=== PATIENT | female | born 1985 | race Caucasian/White ===

== ENCOUNTER 2017-02-05 15:17 | Emergency (ER) | payer BC ==
[2017-02-05 16:50] VITALS: BP 117/73
--- NOTE | 2017-02-05 17:09 | UC ---
UC General HPI - HPI Summary HPI Summary: patient has had 1 day of bodyaches, sore throat and general malaise. 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 - History of Current Complaint Chief Complaint: UCGeneralIllness Stated Complaint: SORE THROAT/BODY ACHES Time Seen by Provider: 02/05/17 16:57 Hx Obtained From: Patient Onset/Duration: Sudden Onset, Lasting Days Timing: Constant Onset Severity: Moderate Current Severity: Moderate Associated Signs & Symptoms: Positive: Cough, Fever, Other - sore thraot, myalgia - Allergy/Home Medications Allergies/Adverse Reactions: Allergies Allergy/AdvReac Type Severity Reaction Status Date / Time [place] Allergy Intermediate LIPS SWELL Verified 02/05/17 16:50 Carrots Allergy Severe Swelling Uncoded 02/05/17 16:50 Of Face,Lips,& Throat Home Medications: Home Medications DULoxetine DR CAP* [Cymbalta CAP*] 60 mg PO ONCE 02/05/17 [History Confirmed 11/23] Hydroxychloroquine TAB* [Plaquenil TAB*] 200 mg PO BID 02/05/17 [History Confirmed 02/05/17] Topiramate [Topamax 100 mg tab] 100 mg PO DAILY 02/05/17 [History Confirmed 11/23] PMH/Surg Hx/FS Hx/Imm Hx Previously Healthy: Yes Endocrine History Of: Denies: Diabetes, Thyroid Disease Cardiovascular History Of: Denies: Cardiac Disorders, Hypertension, Pacemaker/ICD Respiratory History Of: Denies: COPD, Asthma GI/ History Of: Denies: Ulcer - Surgical History Surgical History: Yes Surgery Procedure, Year, and Place: [place] teeth extraction March 2005. LAP FOR ENDOMETRIOSIS - Family History Known Family History: Negative: Cardiac Disease, Hypertension - Social History Alcohol Use: Rare Substance Use Type: None Smoking Status (MU): Never Smoked Tobacco Review of Systems Constitutional: Fever, Chills, Fatigue Skin: Negative Eyes: Negative ENT: Sore Throat, Ear Ache, Nasal Discharge Respiratory: Cough Cardiovascular: Negative Gastrointestinal: Negative Genitourinary: Negative Motor: Negative Neurovascular: Negative Musculoskeletal: Myalgia Neurological: Headache Psychological: Negative All Other Systems Reviewed And Are Negative: Yes Physical Exam Triage Information Reviewed: Yes Appearance: Well-Nourished, Ill-Appearing, Pain Distress Vital Signs: Initial Vital Signs Temp 99.6 F 02/05/17 16:45 Pulse 93 02/05/17 16:45 Resp 16 02/05/17 16:45 BP 117/73 02/05/17 16:45 Pulse Ox 100 02/05/17 16:45 Vital Signs Reviewed: Yes Eye Exam: Normal Eyes: Positive: Conjunctiva Clear ENT: Positive: Pharyngeal erythema, Nasal congestion, Nasal drainage, TM bulging , Tonsillar swelling, Tonsillar exudate Dental Exam: Normal Neck exam: Normal Neck: Positive: Supple, Nontender, No Lymphadenopathy Respiratory Exam: Normal Respiratory: Positive: Chest non-tender, Lungs clear, Normal breath sounds Cardiovascular Exam: Normal Cardiovascular: Positive: RRR, No Murmur, Pulses Normal Abdominal Exam: Normal Abdomen Description: Positive: Nontender, No Organomegaly, Soft Bowel Sounds: Positive: Present Musculoskeletal Exam: Normal Musculoskeletal: Positive: Strength Intact, ROM Intact, No Edema Neurological Exam: Normal Neurological: Positive: Alert, Muscle Tone Normal Psychological Exam: Normal Skin Exam: Normal Course/Dx - Course Course Of Treatment: hx obtained, exam performed, meds reviewed, rapid flu and strep obtained. - Differential Dx - Multi-Symptom Provider Diagnoses: Viral syndrome Discharge - Discharge Plan Condition: Stable Disposition: HOME Prescriptions: predniSONE TAB* [Deltasone TAB*] 40 mg PO DAILY #10 tab Patient Education Materials: Viral Syndrome (ED) Referrals: Allie Liu MD [Primary Care Provider] - Additional Instructions: 1. warm fluids to soothe the throat 2. hot steamy shower to open nasal passages, 3. Neti pot is effective to help with washing sinus cavities 4. Take the dispensed medication for bedtime tonight.
[2017-02-05] MEDS ORDERED: Acetaminop/Codeine 30 MG TAB* 1 TAB (300 MG/30 MG) PO ONE (17:23)
== END 2017-02-05 17:34 | disposition home or self-care (01) ==
LOC: UCCORT 15:17
DX: B34.9 Viral infection, unspecified (principal)
CPT/HCPCS: 87502; 87651; 99212; A9270-GY; G0463

== ENCOUNTER 2017-08-01 12:44 | Emergency (ER) | payer BC ==
[2017-08-01 13:24] VITALS: BP 114/74
--- NOTE | 2017-08-01 13:35 | UC ---
Throat Pain/Nasal Juan HPI - HPI Summary HPI Summary: 31 y/o female presents to the urgent care c/o of sinus congestion and pain, sore throat for the past 2 weeks. Pt states she has been taking OTC meds, neti pot, and saline drops w/o any relief of symptoms. Her Nasal congestion is now with a green discharge and B/L ear pain and TEJADA. Mild subjective fever at times. Pt denies, SOB, chest pain, N/V/D - History of Current Complaint Hx Obtained From: Patient Hx Last Menstrual Period: 01/17/17 ?: No Onset/Duration: Gradual Onset, Lasting Weeks - 2 weeks, Still Present, Worse Since - 3 days Severity: Moderate Pain Intensity: 6 - sinus pain and TEJADA Pain Scale Used: 0-10 Numeric Cough: None Associated Signs & Symptoms: Positive: Dysphagia, Sinus Discomfort - sinus pain , Nasal Discharge - green nasal discharge - Epiglottits Risk Factors Epiglottis Risk Factors: Negative <Tami Alarcon - Last Filed: 08/03/17 21:40> <Maritza Monteiro - Last Filed: 08/04/17 20:03> - History of Current Complaint Chief Complaint: UCGeneralIllness Stated Complaint: SINUS COMPLAINT Time Seen by Provider: 08/01/17 13:24 - Allergies/Home Medications Allergies/Adverse Reactions: Allergies Allergy/AdvReac Type Severity Reaction Status Date / Time [place] Allergy Intermediate LIPS SWELL Verified 08/01/17 13:23 Carrots Allergy Severe Swelling Uncoded 08/01/17 13:23 Of Face,Lips,& Throat Home Medications: Home Medications Ascorbic Acid TAB* [Vitamin C TAB*] 500 mg PO DAILY 08/01/17 [History Confirmed 08/01/17] Cyanocobalamin INJ * [Vitamin B12 INJ *] 1,000 mcg IM SEE INSTRUCTIONS 08/01/17 [History Confirmed 08/01/17] Levomefolic Acid (5-Mthf) [5-Mthf] 1 mg PO DAILY 08/01/17 [History Confirmed ] Propranolol TAB* [Inderal TAB*] 60 mg PO DAILY 08/01/17 [History Confirmed 08/01] PMH/Surg Hx/FS Hx/Imm Hx Previously Healthy: Yes Other Endocrine History: Anemia Neurological History: Migraine - Surgical History Surgical History: Yes Surgery Procedure, Year, and Place: [place] teeth extraction March 2005. LAP FOR ENDOMETRIOSIS - Family History Known Family History: Negative: Cardiac Disease, Hypertension - Social History Alcohol Use: Rare Substance Use Type: None Smoking Status (MU): Never Smoked Tobacco <TenorioFranciscoTami - Last Filed: 08/03/17 21:40> Review of Systems Constitutional: Fever - subjective fever Skin: Negative Eyes: Negative ENT: Sore Throat, Ear Ache - B/L, Nasal Discharge, Sinus Congestion, Sinus Pain/ Tenderness Respiratory: Negative Cardiovascular: Negative Gastrointestinal: Negative Genitourinary: Negative Motor: Negative Neurovascular: Negative Musculoskeletal: Negative Neurological: Headache Psychological: Negative Is Patient Immunocompromised?: No All Other Systems Reviewed And Are Negative: Yes <TenorioFranciscoTami - Last Filed: 08/03/17 21:40> Physical Exam Triage Information Reviewed: Yes Appearance: Well-Appearing, No Pain Distress, Well-Nourished Vital Signs: Initial Vital Signs Temp 98.3 F 08/01/17 13:17 Pulse 81 08/01/17 13:17 Resp 16 08/01/17 13:17 BP 114/74 08/01/17 13:17 Pulse Ox 100 08/01/17 13:17 Vital Signs Reviewed: Yes Eye Exam: Normal Eyes: Positive: Conjunctiva Clear - PERRLA, EOMI fundi grossly normal ENT: Positive: Normal ENT inspection, Hearing grossly normal, Pharynx normal, Nasal congestion - edematous and erythematous nasal mucosa with green posterior nasal drip, Nasal drainage, TMs normal - B/L exteranl ear clear and TM's WNL, Other: - B/L maxillary and frontal tenderness on percussion.. Negative: Tonsillar swelling, Tonsillar exudate Neck exam: Normal Neck: Positive: Supple, Nontender Respiratory Exam: Normal Respiratory: Positive: Chest non-tender, Lungs clear, Normal breath sounds, No respiratory distress Cardiovascular Exam: Normal Cardiovascular: Positive: RRR, No Murmur, Pulses Normal Abdominal Exam: Normal Abdomen Description: Positive: Nontender, No Organomegaly, Soft. Negative: CVA Tenderness (R), CVA Tenderness (L) Bowel Sounds: Positive: Present Musculoskeletal Exam: Normal Musculoskeletal: Positive: Strength Intact, ROM Intact, No Edema Neurological Exam: Normal Psychological Exam: Normal Skin Exam: Normal <Tami Alarcon - Last Filed: 08/03/17 21:40> Vital Signs: Initial Vital Signs Temp 98.3 F 08/01/17 13:17 Pulse 81 08/01/17 13:17 Resp 16 08/01/17 13:17 BP 114/74 08/01/17 13:17 Pulse Ox 100 08/01/17 13:17 <Maritza Monteiro - Last Filed: 08/04/17 20:03> Throat Pain/Nasal Course/Dx - Course Course Of Treatment: 31 y/o female presents to the urgent care c/o of sinus congestion and pain, sore throat for the past 2 weeks. Pt states she has been taking OTC meds, neti pot, and saline drops w/o any relief of symptoms. Her Nasal congestion is now with a green discharge and B/L ear pain and TEJADA. Mild subjective fever at times. Pt denies, SOB, chest pain, N/V/D. Hx obtained. Pt with acute sinusitis on examination. Pt has treated her symptoms w/o any improvemetn. Pt Rx Amoxicillin PO and Flonase nasal spray to alelviate symptoms. Pt advised If symptoms do not improve or worsen to return to the urgent care or f/u with her PCP for further evaluation and treatment. Pt understood and agreed with plan of care. Left the clinic ambulating. - Differential Dx/Diagnosis Differential Diagnosis/HQI/PQRI: Influenza, Laryngitis, Mononucleosis, Pharyngitis, Sinusitis, Tonsillitis, URI Provider Diagnoses: 1-Acute sinusitis <Tami Alarocn - Last Filed: 08/03/17 21:40> Discharge <Tami Alarcon - Last Filed: 08/03/17 21:40> <Maritza Monteiro - Last Filed: 08/04/17 20:03> - Discharge Plan Condition: Stable Disposition: HOME Prescriptions: Amoxicillin PO (*) [Amoxicillin 875 MG (*)] 875 mg PO BID #20 tab Fluticasone NASAL SPRAY 50MCG* [Flonase NASAL SPRAY 50MCG*] 2 spray BOTH NARES DAILY #1 btl Patient Education Materials: Sinusitis (ED) Referrals: Allie Liu MD [Primary Care Provider] - If Needed Additional Instructions: 1- Please take the full course of the antibiotic to avoid resistance. Use the flonase and continue using the saline drops to clear up your sinusis 2-Please take ibuprofen PO OTC q6-8hrs prn as instructed after meals to Headache 3-If symptoms do not improve or worsen please return to the urgent care or f/u with your PCP for further evaluation and treatment. Attestation Statement User Type: Provider - I was available for consult. This patient was seen by the WANG. The patient was not presented to, seen by, or examined by me. -Cory <Maritza Monteiro - Last Filed: 08/04/17 20:03>
== END 2017-08-01 13:51 | disposition home or self-care (01) ==
LOC: UCCORT 12:44
DX: J01.90 Acute sinusitis, unspecified (principal); D64.9 Anemia, unspecified; G43.909 Migraine, unspecified, not intractable, without status migrainosus
CPT/HCPCS: 99212; G0463

== ENCOUNTER 2017-10-28 15:20 | Emergency (ER) | payer BC ==
--- NOTE | 2017-10-28 15:40 | UC ---
Throat Pain/Nasal Juan HPI - HPI Summary HPI Summary: 31 year old female presents with complains of sinus congestion, cough and headache. - History of Current Complaint Stated Complaint: SINUSES,COUGH,TEJADA Time Seen by Provider: 10/28/17 15:40 Hx Obtained From: Patient Hx Last Menstrual Period: 01/17/17 Onset/Duration: Sudden Onset Severity: Moderate Pain Scale Used: 0-10 Numeric - 5 Cough: Nonproductive Associated Signs & Symptoms: Positive: Negative Related History: Seasonal Allergies - Allergies/Home Medications Allergies/Adverse Reactions: Allergies Allergy/AdvReac Type Severity Reaction Status Date / Time [place] Allergy Intermediate LIPS SWELL Verified 10/28/17 15:58 Carrots Allergy Severe Swelling Uncoded 10/28/17 15:58 Of Face,Lips,& Throat PMH/Surg Hx/FS Hx/Imm Hx Previously Healthy: Yes - Surgical History Surgical History: Yes Surgery Procedure, Year, and Place: [place] teeth extraction March 2005. LAP FOR ENDOMETRIOSIS - Family History Known Family History: Negative: Cardiac Disease, Hypertension - Social History Alcohol Use: Rare Substance Use Type: None Smoking Status (MU): Never Smoked Tobacco Review of Systems Constitutional: Negative Skin: Negative Eyes: Negative ENT: Nasal Discharge, Sinus Congestion, Sinus Pain/Tenderness Respiratory: Cough Cardiovascular: Negative Gastrointestinal: Negative Genitourinary: Negative Motor: Negative Neurovascular: Negative Musculoskeletal: Negative Neurological: Negative Psychological: Negative All Other Systems Reviewed And Are Negative: Yes Physical Exam Triage Information Reviewed: Yes Vital Signs Reviewed: Yes Eye Exam: Normal ENT: Positive: Nasal congestion, Nasal drainage, Sinus tenderness Dental Exam: Normal Neck exam: Normal Neck: Positive: 1 Respiratory: Positive: Rhonchi, Wheezing Cardiovascular Exam: Normal Abdominal Exam: Normal Musculoskeletal Exam: Normal Neurological Exam: Normal Psychological Exam: Normal Skin Exam: Normal Throat Pain/Nasal Course/Dx - Differential Dx/Diagnosis Provider Diagnoses: cough. sinus congestion. wheezing Discharge - Discharge Plan Condition: Stable Disposition: HOME Prescriptions: Amoxicillin/Clavulanate TAB* [Augmentin TAB 875*] 875 mg PO BID #20 tab Guaifenesin-Codeine [Cheratussin AC] 1 teasp PO BEDTIME PRN #120 ml MDD 5 ml PRN Reason: Cough LoraTADine TAB(NF) [Claritin 10 MG TAB(NF)] 10 mg PO DAILY #30 tab Methylprednisolone [Medrol Dosepak 4 MG*] 4 mg PO .SEE KAL INSTRUCTION #21 tab Patient Education Materials: Sinusitis (ED) Referrals: Allie Liu MD [Primary Care Provider] - Yg Xiao MD [Medical Doctor] -
--- OUTSIDE RECORDS SUMMARY | 2017-10-28 15:42 | XMS REPORT ---
:1985 External Reference #:[id number] Author Organization [facility] Address [address] [address] Phone [phone] Care Team Providers Name Role Phone Allie Liu MD Care Team Information Rock Duster Unavailable Allie Liu MD Primary Care Physician Unavailable Payers Type Date Identification Numbers Payment Provider Subscriber Commercial Policy Number: [id number] [employer] Estela Lott PayID: [id number] [id number] [place] [id number] Problems Date Description Provider Status Onset: 10/06/2015 Carpal tunnel syndrome Shala Seo M.D. Active Onset: 10/06/2015 Migraine without aura Shala Seo M.D. Active Family History Date Family Member(s) Problem(s) Comments General Lung Cancer General Breast Cancer General Colon Cancer General MT General Psoriasis Father Hypertension Father Hypercholesterolemia Mother Lupus Mother Raynauds Social History Type Date Description Comments Lives With Male Partner ETOH Use Drinks Alcoholic Beverages Occasionally Smoking Does not smoke Recreational Drug Use Denies Drug Use Exercise Type/Frequency Exercises sporadically Exercise Type/Frequency SHe did Sal and aerobic exercise Allergies, Adverse Reactions, Alerts Date Description Reaction Status Severity Comments 02/15/2012 NKDA active Medications Medication Date Status Form Strength Qnty SIG Indications Ordering Provider Propranolol HCL ER 04/15 Active Caps ER 60mg 30cap 1 by mouth Shala 24HR s every day [place] Seo Topamax 04/15 Active Tablets 100mg 30tab 1 by mouth G43.019 Shala s everyday [place] Seo Lidoderm 12/01 Active Patches 5% 60uni 1 apply to A69.20 Ravi /2017 ts affected [facility], area 12 M.D. hours on, 12 hours off. has not been using recently Plaquenil 12/01 Active Tablets 200mg 180ta Please take bs 2 by mouth Pushpa, daily M.D. ongoing Diclofenac Sodium 12/01 Active Tablets 75mg 60tab take one DR hyde capsule/tab Pushpa let by [place] mouth twice daily as needed for pain, avoid other nsaids Cyanocobalamin 11/10 Active Solution 1000mcg/M 75ml sq once L every 2 Pushpa, weeks;; M.D. please provide appropriate needle and syringes for injection BD 1ML 11/10 Active Misc 26G X 90uni for use Syringe/Needle/Sli 03/14" 1 ML ts weekly with isabel Barrow Tip/Subq/26G X sc M.DShayy 03/14" cyanocobala min Nitro-bid 11/04 Active Ointment 2% 30gm apply small I73. amount to yulissa Barrow of [place] digits as needed for attack of raynaud's Cymbalta 10/06 Active Caps 60mg 30cap 1 by mouth Shala Smith Part s every day [place] Seo Butalbital/Acetami Active Tablets 50-325mg 60tab 1 po 4 Unknown nophen /0000 s times daily prn Calcium 600-D Active Tablets 600-400mg 60tab 1 po bid Unknown /0000 -Unit s Lo Loestrin Fe Active Tablets 1mg-10 As Unknown /0000 mcg / 10 directed.. mcg Vitamin C Active Capsules 500mg 1 by mouth Unknown /0000 every day Valium Active Tablets 5mg 1 tab as Unknown /0000 needed Lifitegrast Active 1 drop in Unknown /0000 each eye twice daily Glycine Active 500mg 2 caps po Unknown /0000 daily 5-MTHF Active Capsules 1mg 1 tab po Unknown /0000 bid Turmeric Curcumin Active Capsules 500mg 1 cap po Unknown /0000 daily Cats Claw Active Capsules 500mg 1 cap po Unknown /0000 2-3x daily Doxycycline 11/10 Hx Tablets 100mg 60tab Take one s capsule/tab Pushpa, - let by [place] 04/11 mouth twice daily Cyanocobalamin 11/10 Hx Tablets 2500mcg 90tab take one Sub s capsule/tab Pushpa, - let daily M.Jeremy 02/07 by mouth Topamax 05/31 Hx Tablets 25mg 120ta 4 tabs by G43.019 Shala Smith /[facility] - [facility] as M.Jeremy 04/15 directed Prednisone 02/17 Hx Tablets 10mg 28tab use as G56.01 Shala Smith s directed Gabbi, - tab by [place] 05/30 mouth Propranolol HCL ER 10/06 Hx Caps ER 80mg 60cap 1 cap by Shala Smith 24HR s mouth each Gabbi, - day. [place] 04/15 Lyrica 03/07 Hx Capsules 50mg 60cap 1 po bid s Stu - [place] 10/05 Citalopram 02/14 Hx Tablets 40mg 30tab 1 by mouth Kirk Hydrobromide s once daily Stu - MGaurav 10/05 Verapamil HCL 02/14 Hx Tablets 30mg 270ta 1 tid day bs Stu - M.DShayy 02/14 Verapamil HCL 02/14 Hx Tablets 40mg 270ta 1 tid day bs Stu, - M.Jeremy 10/05 Ranitidine HCL Hx Tablets 150mg 180ta take one Unknown / bs tablet by - mouth twice 10/05 a /2014 Verapamil HCL ER Hx Caps ER 180mg 90cap 1 po qd Unknown /0000 24HR s - 02/14 Naproxen Hx Tablets 250mg 120ta 2 bid with Unknown /0000 bs food - 10/05 Hydroxychloroquine Hx Tablets 200mg 60tab 1 po daily Unknown Sulfate /0000 s - 10/05 Aspirin Adult Low Hx Chewtabs 81mg 90uni 1 po qd Unknown Strength /0000 ts - 10/05 Multi For Her Hx Capsules 1 po qd Unknown / - 05/16 Mobic Hx Tablets 15mg once daily Unknown /0000 with food - 12/01 Propranolol HCL ER 00/ Hx Caps ER 120mg 1 by mouth Unknown /0000 24HR every day - 10/06 Soma Hx Tablets 350mg three times Unknown /0000 a day as - needed 10/17 Valium Hx Tablets 5mg 1 by mouth Unknown /0000 as needed - 05/30 Amoxicillin Hx Tablets 875mg 1 by mouth Unknown /0000 twice a day - 02/16 Nabumetone Hx Tablets 500mg 1 tab twice A69.20 Unknown / daily - 12/01 Prednisone Hx Tablets 10mg as directed Unknown / x 1 week - 04/11 L-Lysine Hx Tablets 1000mg 1 tab po Unknown / daily - 10/11 Biotin Hx Capsules 5000mcg 1 tab daily Unknown / - 10/11 Medications Administered in Office Medication Date Status Form Strength Qnty SIG Indications Ordering Provider Influenza Administered Injection Unknown Virus Vaccine 016 Vital Signs Date Vital Result Comment 10/14/2017 Height 65 inches 5'5" Weight 152.12 lb Heart Rate 67 /min BP Systolic Sitting 100 mmHg BP Diastolic Sitting 60 mmHg Respiratory Rate 16 /min O2 % BldC Oximetry 96 % BMI (Body Mass Index) 25.3 kg/m2 05/16/2017 Height 65 inches 5'5" Weight 153.00 lb Heart Rate 86 /min BP Systolic Sitting 105 mmHg BP Diastolic Sitting 65 mmHg Respiratory Rate 14 /min Pain Level 4 BMI (Body Mass Index) 25.5 kg/m2 04/15/2017 Height 65 inches 5'5" Weight 148.38 lb Heart Rate 77 /min BP Systolic Sitting 106 mmHg BP Diastolic Sitting 64 mmHg O2 % BldC Oximetry 99 % BMI (Body Mass Index) 24.7 kg/m2 02/07/2017 Height 65 inches 5'5" Weight 148.00 lb Heart Rate 81 /min BP Systolic Sitting 96 mmHg BP Diastolic Sitting 60 mmHg Respiratory Rate 14 /min Body Temperature 98.1 F BMI (Body Mass Index) 24.6 kg/m2 12/01/2016 Height 65 inches 5'5" Weight 155.00 lb Heart Rate 72 /min BP Systolic Sitting 80 mmHg BP Diastolic Sitting 50 mmHg Respiratory Rate 14 /min Body Temperature 96.6 F Pain Level 7 BMI (Body Mass Index) 25.8 kg/m2 11/04/2016 Height 65 inches 5'5" Weight 159.00 lb Heart Rate 72 /min BP Systolic Sitting 96 mmHg BP Diastolic Sitting 64 mmHg Respiratory Rate 14 /min Body Temperature 98.4 F Pain Level 6 neck BMI (Body Mass Index) 26.5 kg/m2 10/18/2016 Height 65 inches 5'5" Weight 154.00 lb Heart Rate 64 /min BP Systolic Sitting 100 mmHg BP Diastolic Sitting 62 mmHg O2 % BldC Oximetry 98 % BMI (Body Mass Index) 25.6 kg/m2 05/31/2016 Height 65 inches 5'5" Weight 162.00 lb Heart Rate 64 /min BP Systolic Sitting 104 mmHg BP Diastolic Sitting 74 mmHg Respiratory Rate 112 /min BMI (Body Mass Index) 27.0 kg/m2 02/18/2016 Height 65 inches 5'5" Weight 160.00 lb Heart Rate 84 /min BP Systolic Sitting 100 mmHg BP Diastolic Sitting 74 mmHg BMI (Body Mass Index) 26.6 kg/m2 12/12/2015 Height 65 inches 5'5" Weight 158.00 lb Heart Rate 64 /min BP Systolic Sitting 120 mmHg BP Diastolic Sitting 70 mmHg Respiratory Rate 14 /min BMI (Body Mass Index) 26.3 kg/m2 10/06/2015 Height 65 inches 5'5" Weight 158.00 lb Heart Rate 88 /min BP Systolic Sitting 98 mmHg BP Diastolic Sitting 70 mmHg Respiratory Rate 12 /min BMI (Body Mass Index) 26.3 kg/m2 03/07/2012 Height 64.75 inches 5'4.75" Weight 126.00 lb Heart Rate 68 /min BP Systolic Sitting 123 mmHg BP Diastolic Sitting 73 mmHg BMI (Body Mass Index) 21.1 kg/m2 02/15/2012 Height 64.75 inches 5'4.75" Weight 126.00 lb Heart Rate 72 /min BP Systolic Sitting 110 mmHg BP Diastolic Sitting 70 mmHg BMI (Body Mass Index) 21.1 kg/m2 Results Test Date Test Result H/L Range Note Laboratory test finding 04/15/2017 Ebv Early Antigen Negative Negative 1 Monospot Negative Negative 2 Laboratory test finding 03/18/2017 Erythrocyte Sed Rate 12 mm/Hr 0-14 3 C Reactive Protein 4.12 mg/L < 5.00 4 Basic Metabolic Panel 03/18/2017 Sodium 137 mmol/L 133-145 Potassium 4.0 mmol/L 3.5-5.0 Chloride 107 mmol/L 101-111 Co2 Carbon Dioxide 23 mmol/L 22-32 Anion Gap 7 mmol/L 2-11 Glucose 90 mg/dL 70-100 Blood Urea Nitrogen 16 mg/dL 6-24 Creatinine 0.85 mg/dL 0.51-0.95 BUN/Creatinine Ratio 18.8 8-20 Calcium 9.1 mg/dL 8.6-10.3 Egfr Non- 77.5 >60 Egfr 99.7 >60 5 Comp Metabolic Panel 02/07/2017 Sodium 135 mmol/L 133-145 Potassium 4.1 mmol/L 3.5-5.0 Chloride 106 mmol/L 101-111 Co2 Carbon Dioxide 19 mmol/L Low 22-32 Anion Gap 10 mmol/L 2-11 Glucose 145 mg/dL High 70-100 Blood Urea Nitrogen 10 mg/dL 6-24 Creatinine 0.71 mg/dL 0.51-0.95 BUN/Creatinine Ratio 14.1 8-20 Calcium 9.0 mg/dL 8.6-10.3 Total Protein 6.8 g/dL 6.4-8.9 Albumin 4.2 g/dL 3.2-5.2 Globulin 2.6 g/dL 2-4 Albumin/Globulin Ratio 1.6 1-3 Total Bilirubin 0.30 mg/dL 0.2-1.0 Alkaline Phosphatase 70 U/L 34-104 Alt 20 U/L 7-52 Ast 19 U/L 13-39 Egfr Non- 95.4 >60 Egfr 122.7 >60 6 CBC Auto Diff 02/07/2017 White Blood Count 10.4 10^3/uL 3.5-10.8 Red Blood Count 3.81 10^6/uL Low 4.0-5.4 Hemoglobin 11.7 g/dL Low 12.0-16.0 Hematocrit 35 % 35-47 Mean Corpuscular Volume 92 fL 80-97 Mean Corpuscular Hemoglobin 31 pg 27-31 Mean Corpuscular HGB Conc 33 g/dL 31-36 Red Cell Distribution Width 12 % 10.5-15 Platelet Count 253 10^3/uL 150-450 Mean Platelet Volume 10 um3 7.4-10.4 Abs Neutrophils 9.2 10^3/uL High 1.5-7.7 Abs Lymphocytes 1.0 10^3/uL 1.0-4.8 Abs Monocytes 0.2 10^3/uL 0-0.8 Abs Eosinophils 0 10^3/uL 0-0.6 Abs Basophils 0 10^3/uL 0-0.2 Abs Nucleated RBC 0 10^3/uL Granulocyte % 88.7 % High 38-83 Lymphocyte % 9.5 % Low 25-47 Monocyte % 1.6 % 1-9 Eosinophil % 0 % 0-6 Basophil % 0.2 % 0-2 Nucleated Red Blood Cells % 0 Vitamin B12 And Folate Serum 02/07/2017 Vitamin B12 382 pg/mL 180-914 7 Folic Acid (Folate) 16.98 ng/mL >3.99 8 Laboratory test finding 02/07/2017 TSH (Thyroid Stim 0.79 mcIU/mL 0.34- 5.60 9 Horm) MTHFR Mutation Detection 02/07/2017 MTHFR C677T Mutation Negative Negative MTHFR Interpretation See Comment 10 MTHFR Reviewed By See Comment 11 MTHFR [id number] Mutation Heterozygous Negative Mthac Interpretation See Comment 12 Mthac Reviewed By See Comment 13 Laboratory test finding 02/07/2017 Erythrocyte Sed Rate 36 mm/Hr High 0- 14 14 C Reactive Protein 33.84 mg/L High < 5.00 15 Lyme Western Blot 11/04/2016 Lyme Disease IgG Ab WB Negative Negative Lyme Disease IgG Bands Present No bands detecte <SEE NOTE> kDa 16 Lyme Disease IgM Ab WB Positive Negative Lyme Disease IgM Bands Present p41, p39, p23, kDa Lyme Disease Interpretation See Comment 17 Anca AB Ser If 11/04/2016 C-Anca Negative Negative P-Anca Negative Negative 18 Laboratory test finding 11/04/2016 Creatine Kinase(CK) 81 U/L 10-223 Angiotensin Converting Enzyme 40 U/L 8 - 53 19 Lupus Anticoagulant AB 11/04/2016 Prothrombin Time(Lac) 9.3 sec 20 Lac Inr 0.9 Lac Aptt 29 sec 26 - 36 Lac DRVVT Screen Ratio 0.9 ratio 0.0 - 1.1 Lupus Anticoagulant Interpreta See Comment 21 Beta 2 Glycoprotein I Abs 11/04/2016 Beta 2 Glycoprotein IgG <4.0 U/mL 22 Beta 2 Glycoprotein IgM <4.0 U/mL 23 Celiac Panel 11/04/2016 Tissue Transglutaminase IgA Ab <1.2 U/mL 24 Tissue Transglutaminase IgG Ab 1.6 U/mL 25 Immunoglobulin A 35 mg/dL 61 - 356 Celiac Interpretation See Comment 26 Gliadin IgG See Comment 27 Coretta Igg AB Reflex 11/04/2016 SS-A/Ro Antibody <0.2 U 28 SS-B/La Antibody <0.2 U 29 Sm (Dee) IgG Antibody <0.2 U 30 U1-nRNP Antibody <0.2 U 31 Scl-70 (Scleroderma) Antibody 0.4 U 32 Althea-1 Antibody <0.2 U 33 Laboratory test finding 11/04/2016 Complement C3 127 mg/dL 75 - 175 34 Complement C4 23 mg/dL 14 - 40 35 C Reactive Protein 4.51 mg/L < 5.00 36 Erythrocyte Sed Rate 16 mm/Hr High 0-14 Rheumatoid Factor <15 IU/mL <15 37 Vitamin B12 And Folate Serum 11/04/2016 Vitamin B12 146 pg/mL Low 180-914 38 Folic Acid (Folate) 16.75 ng/mL >3.99 Laboratory test finding 11/04/2016 Lyme Disease Serology Positive Negative 39 Vitamin D 1,25 And 11/04/2016 Vitamin D Total 25(Oh) 29.7 ng/mL Low 30-50 Vitamin D,2 Vitamin D, 1,25 Dihydroxy 109 pg/mL 18-78 40 Cardiolipin Igg/Igm 10/06/2015 Phospholipid Ab IgM, S < 4.0 MPL 41 Phospholipid Ab IgG < 4.0 GPL 42 Laboratory test finding 10/06/2015 Free T4 (Free Thyroxine) 1.04 ng/mL 0.61-1.12 TSH (Thyroid Stim Horm) 1.41 ?IU/mL 0.34-5.60 1 Test Performed by: [facility] [address] [place] [id number] 2 Please check this week Would you like an EBV if Monospot is Negative?: N 3 Please check in 3 weeks 4 Acute inflammation: >10.00 5 Because ethnic data is not always readily available, this report includes an eGFR for both -Americans and non- Americans. The National Kidney Disease Education Program (NKDEP) does not endorse the use of the MDRD equation for patients that are not between the ages of 18 and 70, are , have extremes of body size, muscle mass, or nutritional status, or are non- or non-. According to the National Kidney Foundation, irrespective of diagnosis, the stage of the disease is based on the level of kidney function: Stage Description GFR(mL/min/1.73 m(2)) 1 Kidney damage with normal or decreased GFR 90 2 Kidney damage with mild decrease in GFR 60-89 3 Moderate decrease in GFR 30-59 4 Severe decrease in GFR 15-29 5 Kidney failure <15 (or dialysis) 6 Because ethnic data is not always readily available, this report includes an eGFR for both -Americans and non- Americans. The National Kidney Disease Education Program (NKDEP) does not endorse the use of the MDRD equation for patients that are not between the ages of 18 and 70, are , have extremes of body size, muscle mass, or nutritional status, or are non- or non-. According to the National Kidney Foundation, irrespective of diagnosis, the stage of the disease is based on the level of kidney function: Stage Description GFR(mL/min/1.73 m(2)) 1 Kidney damage with normal or decreased GFR 90 2 Kidney damage with mild decrease in GFR 60-89 3 Moderate decrease in GFR 30-59 4 Severe decrease in GFR 15-29 5 Kidney failure <15 (or dialysis) 7 Normal Range 180 to 914 Indeterminate Range 145 to 180 Deficient Range <145 8 Please check this month 9 Please check this month 10 This individual DOES NOT have the Methylenetetrahydrofolate reductase (MTHFR) C677T gene mutation. In the absence of the MTHFR C677T gene mutation, other causes of hyperhomocysteinemia should be considered (renal failure, zinc deficiency, leukemia, psoriasis, or antifolate drug therapy). If clinically indicated, suggest Coagulation Consultation 17395 (Thrombophilia Profile) to complete the evaluation for an inherited or acquired thrombosing disorder (i.e., thrombophilia). Consider genetic consultation and counseling of potentially affected family members regarding laboratory testing. ADDITIONAL INFORMATION This test is a direct mutation analysis using PCR amplification, signal generation and release by cleavage of sequence specific alleles ([employer], [employer], [place], [place]). This test has been modified from the brake lining finisher's instructions. Its performance characteristics were determined by [facility] in a manner consistent with CLIA requirements. This test has not been cleared or approved by the U.S. Food and Drug Administration. 11 RESULT: González Bryan M.D., Ph.D. 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 MTHAC S0390T carriers are not at increased risk for thrombosis in the absence of hyperhomocysteinemia. In the absence of alternative causes, heterozygous carriers of MTHAC [id number] are not at increased risk for hyperhomocysteinemia. Hyperhomocysteinemia is a relatively weak risk factor for both venous thromboembolism and arterial thrombosis. The MTHAC Q1113Q gene mutation test does not detect other causes of hyperhomocysteinemia due to acquired disorders (renal failure, zinc deficiency, leukemia, psoriasis, or antifolate drug therapy). If clinically indicated, suggest Coagulation Consultation 29195 (Thrombophila Profile) to complete the evaluation for an inherited or acquired thrombosing disorder (i.e., thrombophilia). Consider genetic consultation and counseling of potentially affected family members regarding laboratory testing. ADDITIONAL INFORMATION This test is a direct mutation analysis using PCR amplification, signal generation and release by cleavage of sequence specific alleles ([employer], [employer], [place], [place]). This test has been modified from the brake lining finisher's instructions. Its performance characteristics were determined by [facility] in a manner consistent with CLIA requirements. This test has not been cleared or approved by the U.S. Food and Drug Administration. 13 RESULT: González Bryan M.D., Ph.D. This test is a direct mutation analysis using PCR amplification, signal generation and release by cleavage of sequence specific alleles ([employer], [employer], [place], [place]). This test has been modified from the brake lining finisher's instructions. Its performance characteristics were determined by [facility] in a manner consistent with CLIA requirements. This test has not been cleared or approved by the U.S. Food and Drug Administration. Test Performed by: [facility] [place] [address] 14 Please check this month 15 Acute inflammation: >10.00 16 No bands detected 17 Consistent with early infection with Borrelia burgdorferi. A new serum specimen should be submitted in 14-21 days to demonstrate seroconversion of IgG. IgM blot criteria is of diagnostic utility only during the first 4 weeks of early Lyme disease. ADDITIONAL INFORMATION CDC criteria require >=5 bands for IgG or >=2 bands for IgM for the Immunoblot to be considered positive. Bands (e.g.,p41) may be detected in patients without Lyme disease, and patterns not meeting the CDC criteria should be interpreted with caution. Immunoblot should be ordered only on specimens that are positive or equivocal by a FDA-licensed Lyme disease antibody screening test (e.g., EIA). Test Performed by: [facility] [place] [address] Director Systems: José Miguel Russell II, M.D., Ph.D. 18 Negative for cANCA and pANCA patterns by immunofluorescence. ADDITIONAL INFORMATION This test was developed and its performance characteristics determined by [facility] in a manner consistent with CLIA requirements. This test has not been cleared or approved by the U.S. Food and Drug Administration. Test Performed by: [facility] [place] [address] Director Systems: José Miguel Russell II, M.D., Ph.D. 19 Test Performed by: [facility] [place] [address] Director Systems: José Miguel Russell II, M.D., Ph.D. 20 REFERENCE VALUE 10.3 - 12.8 21 No evidence of a lupus-like anticoagulant based on results of Prothrombin Time (PT), Activated Partial Thromboplastin Time (APTT), and Dilute Russells Viper Venom Time (DRVVT). Interpretation not reviewed by physician. Test Performed by: [place] [address] Director Systems: José Miguel Russell II, M.D., Ph.D. 22 REFERENCE VALUE <10.0 (Negative) 23 REFERENCE VALUE <10.0 (Negative) Test Performed by: [place] [address] Director Systems: José Miguel Russell II, M.D., Ph.D. 24 REFERENCE VALUE <4.0 (Negative) Test Performed by: [place] [address] Director Systems: José Miguel Russell II, M.D., Ph.D. 25 REFERENCE VALUE <6.0 (Negative) Test Performed by: [place] [address] Director Systems: José Miguel Russell II, M.D., Ph.D. 26 Negative serology. Celiac disease unlikely. However, approximately 10% of patients with celiac disease are seronegative. Also, patients who are already adhering to a gluten-free diet may be seronegative. If celiac disease is highly clinically suspected, consider HLA-DQ typing. Test Performed by: [facility] [place] [address] Director Systems: José Miguel Russell II, M.D., Ph.D. 27 Test Result Flag Unit RefValue Gliadin(Deamidated) Ab, IgG, <10.0 U S REFERENCE VALUE <20.0 (Negative) Test Performed by: [address] [address] Director Systems: José Miguel Russell II, M.D., Ph.D. 28 REFERENCE VALUE <1.0 (Negative) 29 REFERENCE VALUE <1.0 (Negative) 30 REFERENCE VALUE <1.0 (Negative) 31 REFERENCE VALUE <1.0 (Negative) 32 REFERENCE VALUE <1.0 (Negative) 33 REFERENCE VALUE <1.0 (Negative) Test Performed by: [place] [address] Director Systems: José Miguel Russell II, M.D., Ph.D. 34 Test Performed by: [place] [address] Director Systems: José Miguel Russell II, M.D., Ph.D. 35 Test Performed by: [place] [address] Director Systems: José Miguel Russell II, M.D., Ph.D. 36 Acute inflammation: >10.00 37 Test Performed by: [place] [address] Director Systems: José Miguel Russell II, M.D., Ph.D. 38 Normal Range 180 to 914 Indeterminate Range 145 to 180 Deficient Range <145 39 Not diagnostic. Supplemental testing ordered by reflex. Test Performed by: [place] [address] Director Systems: José Miguel Russell II, M.D., Ph.D. 40 ADDITIONAL INFORMATION This test was developed and its performance characteristics determined by [facility] in a manner consistent with CLIA requirements. This test has not been cleared or approved by the U.S. Food and Drug Administration. Test Performed by: [place] [address] Director Systems: José Miguel Russell II, M.D., Ph.D. 41 REFERENCE VALUE <10.0 (Negative) 42 REFERENCE VALUE <10.0 (Negative) Test Performed by: [place] [address] Director Systems: José Miguel Russell II, M.D., Ph.D. Procedures Date CPT Code Description Status 12/12/2015 25395 Nerve Conduction - Studies Completed Encounters Type Date Location Provider CPT E/M Dx Office Visit 05/16/2017 Rheumatology Services Ravi Barrow M.D. 59963 M35.9 9:00a Of [employer] Salesperson I73.00 M79.1 E53.8 Z79.899 Office Visit 04/15/2017 2:30p Caprice Seo, 15477 G43.009 Neurologic Serv Of [employer] M.D. Office Visit 02/07/2017 9:00a Rheumatology Services Ravi Barrow 86649 M35.9 Of [employer] Salesperson M.D. I73.00 M79.1 E53.8 Z79.899 Office Visit 12/01/2016 4:20p Rheumatology Services Ravi Barrow 41528 I73.00 Of [employer] Salesperson M.D. M79.1 M35.9 E53.8 Office Visit 11/04/2016 2:00p Rheumatology Services Of Ravi Barrow 25065 M35.9 [employer] Equipment Salesperson M.D. I73.00 R20.8 M79.1 Office Visit 10/18/2016 3:15p Caprice Seo 23158 G43.009 Neurologic Serv Of [employer] Salesperson M.D. G56.03 Office Visit 05/31/2016 11:15a Caprice Seo 12035 G43.019 Neurologic Serv Of [employer] Salesperson M.D. G56.01 G56.02 Office Visit 02/18/2016 8:45a Caprice Seo 86162 G56.01 Neurologic Serv Of [employer] Salesperson M.D. G56.02 R20.2 Office Visit 10/06/2015 10:00a [place] Shala Seo, 44522 G56.01 Neurologic Serv Of [facility] [place] G43.019 G43.009 R20.2 Office Visit 03/07/2012 3:20p Rheumatology Services Kirk Peraza M.D. 61236 710.9 Of [facility] 784.0 V58.69 Office Visit 02/15/2012 2:00p Rheumatology Services Kirk Peraza 66346 795.79 Of [facility] [place] 338.4 Plan of Care Future Appointment(s):05/08/2018 11:00 am - Shala Seo M.D. at [facility] Neurologic [facility]11/02/2017 8:00 am - Ravi Barrow M.D. at [facility]10/14/2017 - Shala Seo M.D.G43.009 Migraine w/o aura, not intractable, w/o status migrainosusFollow up:6 MONTHSRecommendations:stay on propranolol 60 mg ER and topomax 100 mg per day. call if increased headaches.
[2017-10-28 15:58] VITALS: BP 112/67
== END 2017-10-28 16:09 | disposition home or self-care (01) ==
LOC: UCCORT 15:20
DX: R05 Cough (principal); R09.81 Nasal congestion; R06.2 Wheezing
CPT/HCPCS: 99212; G0463